=== PATIENT | female | born 1970 | race Hispanic/Latino ===

== ENCOUNTER 2019-04-22 08:05 | Outpatient (CLI) | payer OTHER ==
--- NOTE | 2019-04-22 09:54 | MMO ---
Bilateral MAMMO Bilat Diag [facility]. CLINICAL HISTORY: Patient is 49 years old and is seen for diagnostic exam. The patient has the following family history of breast cancer: mother, at age 70, malignant (generic). 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 VIEWS: The views performed were: bilateral craniocaudal with tomosynthesis; bilateral mediolateral oblique with tomosynthesis; and bilateral mediolateral with tomosynthesis. FILMS COMPARED: The present examination has been compared to prior imaging studies performed at [facility] on 04/22/2019, and at [facility] on 09/05/2016 and 10/13/2016. This study has been interpreted with the assistance of computer-aided detection. MAMMOGRAM FINDINGS: There are scattered fibroglandular densities. There are bilateral retro-pectoral implants. Finding 1: There is a new equal density, oval mass measuring 10 millimeters seen in the middle region of the right breast at 3 o'clock. By ultrasound, this lesion is heterogenous and may reflect complex cystic mass or complex cyst. Finding 2: There is no radiographic abnormality in the region of the palpable abnormality in the lower region of the left breast. Finding 3: There is no radiographic abnormality in the region of the palpable abnormality in the upper-outer region of the left breast. Finding 4: There is a fat containing, oval mass in the left axilla. Mass correlates to the palpable abnormality in the left axilla. Multiple oil cysts are seen in the region of palpable concern. IMPRESSION: FINDING 1: NEW MASS IN THE RIGHT BREAST IS SUSPICIOUS. RECOMMEND CYST ASPIRATION AND/OR BIOPSY BY ULTRASOUND GUIDANCE. THE PATIENT WAS INFORMED OF THE EXAM RESULTS. FINDING 2: PALPABLE ABNORMALITY IN THE LEFT BREAST IS BENIGN. FINDING 3: PALPABLE ABNORMALITY IN THE LEFT BREAST IS BENIGN. FINDING 4: MASS IN THE LEFT AXILLA IS BENIGN. A ROUTINE FOLLOW-UP MAMMOGRAM IN 1 YEAR IS RECOMMENDED. THE RESULTS OF THIS EXAM WERE SENT TO THE PATIENT. ACR BI-RADS Category 4 - Suspicious abnormality - biopsy should be considered MAMMOGRAPHY NOTE: 1. A negative mammogram report should not delay a biopsy if a dominant of clinically suspicious mass is present. 2. Approximately 10% to 15% of breast cancers are not detected by mammography. 3. Adenosis and dense breasts may obscure an underlying neoplasm. Reported by: PAULETTE RODRIGUEZ MD Electonically Signed: [id number]
--- NOTE | 2019-04-22 12:20 | ULT ---
RIGHT BREAST DIAGNOSTIC ULTRASOUND: INDICATIONS: New right breast mass at the 3 o'clock position. FINDINGS: Corresponding to the mammographic abnormalities, there is a 1 x 0.4 cm heterogeneous, oval, well circ umscribed mass. This may reflect a complex cystic mass or a complex cyst. There is an additional simp le appearing cyst adjacent to this lesion measuring 5 mm. No suspicious abnormality seen within the retroareolar right breast. IMPRESSION: 1. BI-RADS category 4 - suspicious abnormality. Recommend ultrasound guided cyst aspiration versus bi opsy of the right breast mass in the 3 o'clock position, 5 cm from the nipple. This may reflect a com plex cyst or a complex cystic mass. 2. Simple cyst seen within the right breast 3 o'clock position. POS: OFF
== END 2019-04-22 08:06 | disposition home or self-care (01) ==
LOC: BICMAMMO 08:05
PROVIDERS: ATTEND Family Medicine
DX: N63.23 Unspecified lump in the left breast, lower outer quadrant (principal); Z98.82 Breast implant status; Z80.3 Family history of malignant neoplasm of breast; Z85.3 Personal history of malignant neoplasm of breast; N63.10 Unspecified lump in the right breast, unspecified quadrant; N60.01 Solitary cyst of right breast
CPT/HCPCS: 77066; G0279